=== PATIENT | male | born 1955 | race Hispanic/Latino ===

== ENCOUNTER 2019-03-03 19:13 | Inpatient (IN) | payer OTHER ==
[2019-03-04] MEDS: DESYREL PO SCH ×2 (06:20→21:27)
[2019-03-04] MEDS ORDERED: NEURONTIN PO SCH (08:00)
[2019-03-04 08:19] LABS: Chol/HDL Ratio 4.39 %
[2019-03-04] MEDS: HumaLOG SUB-Q SCH ×4 (08:43→21:25)
[2019-03-04] MEDS ORDERED: NON-FORMULARY (Seroquel 200 MG) PO PRN (12:24)
[2019-03-04] MEDS ORDERED: NON-FORMULARY (Aspirin Ec 81 MG) PO SCH (12:30)
[2019-03-04] MEDS ORDERED: NON-FORMULARY (Metformin 1,000 MG) PO SCH (12:30)
[2019-03-04] MEDS ORDERED: INSULIN GLARGINE SUB-Q SCH (12:30)
[2019-03-04] MEDS ORDERED: APIXABAN 5 MG PO SCH (12:30)
[2019-03-04] MEDS ORDERED: DEPAKOTE 500 MG PO SCH (12:30)
[2019-03-04] MEDS ORDERED: BREO ELLIPTA INHALATION SCH (12:30)
[2019-03-04] MEDS: BETAPACE PO SCH ×2 (12:41→21:33)
[2019-03-04] MEDS ORDERED: SOTALOL 120 MG PO SCH (12:45)
--- NOTE | 2019-03-04 12:53 | History and Physical Report ---
GP History & Physical - History of Present Illness Date of admission: 03/03/19 Date of Examination: 03/04/19 Reason for Admission: Danger to self, Psychopathology interference, Severe anxiety/depression Chief Complaint: Anxious, depressed, hearing voices and suicidal History of Present Illness: The patient is a 63yo retired male with history of Bipolar disorder. He presents with severely depressed mood, anxiety auditory hallucinations and suicidal thoughts. In my interview with the patient, he reports that he has been feeling more depressed in the last couple of weeks. He is unable to enjoy his usual pleasurable activities, has been isolating from family and friends, unable to initiate and maintain sleep and feels tired most of the time. His appetite is good. He reports feeling hopeless and helpless. He admits considering suicide especially when he feels tormented by the voices that tells him negative things and make derogatory comments at him. He reports feeling very anxious, on edge and irritable all the time. No panic attacks. He had his medications adjusted in the outpatient clinic but no improvement in his feelings. He reports being compliant with his meds and denies major side effects. 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 Legal Status: Voluntary Patient Problems: Current Active Problems Anxiety disorder, unspecified (Acute) Bipolar 1 disorder, depressed, severe (Acute) Reaction to Hospitalization: Accepting Substance History - Substance History Drug Use: none Hx Tobacco Use: No Alcohol Use: No Past psychiatric history - Past Medical History Past Medical History: acute [place], atrial fib, CAD, COPD, diabetes - past Psychiatric treatment and history Psych: Anxiety, Bipolar psychiatric treatment history: 6 inpatient admissions 1 suicide attempt by cutting his wrist 3 years ago He self mutilates his skin by scratching with his long finger nails. No self- harm behavior for over a year. He is happy with current out-patient provider - wants his psychiatrist to listen to him more. - Social History Social history: , lives with family (completed high school, retired, no legal problem and no access to guns. ) Review of Systems All systems: negative Psychiatric: anxiety, insomnia, suicidal ideation, hallucinations, depression, hopelessness, anhedonia, anxiety attacks, irritability Results - Results Labs/Vitals: Laboratory Last Values POC Glucose 190 (70-105) H 03/04/19 11:19 9.1 % (4-6) H 03/04/19 07:48 Triglycerides 242 mg/dL (2-149) H 03/04/19 07:48 Cholesterol 145 mg/dL (50-199) 03/04/19 07:48 96 mg/dL (50-130) 03/04/19 07:48 33 mg/dL (40-59) L 03/04/19 07:48 4.39 % 03/04/19 07:48 Valproic Acid 47.2 ug/mL (50-100) L 03/04/19 07:48 Last Vital Signs Temp 97.3 F L 03/04/19 04:15 Pulse 53 L 03/04/19 04:15 Resp 18 03/04/19 04:15 BP 129/78 03/04/19 04:15 Pulse Ox 98 03/04/19 04:15 Physical Examination - Constitutional Vitals: Vital Signs Temp Pulse Resp BP Pulse Ox 97.3 F L 53 L 18 129/78 98 03/04/19 04:15 03/04/19 04:15 03/04/19 04:15 03/04/19 04:15 03/04/19 04:15 Temperature -Last 24 Hours Temperature 97.3 F General appearance: Present: no acute distress, well-nourished - EENT Eyes: Present: PERRL, EOM intact ENT: hearing intact, clear oral mucosa - Neck Neck: Present: supple, normal ROM - Respiratory Respiratory effort: normal Mental Status Exam - Vital signs Last Vital Signs Temp 97.3 F L 03/04/19 04:15 Pulse 53 L 03/04/19 04:15 Resp 18 03/04/19 04:15 BP 129/78 03/04/19 04:15 Pulse Ox 98 03/04/19 04:15 - Exam Orientation: time, place, person Affect: depressed, anxious Mood: congruent with affect Thought Process: Intact Perceptions: hallucinations Speech: normal rate and pattern Concentration: focused Motor activity: lethargic Level of consciousness: alert Memory: Intact Sleep Symptoms: Difficulty Falling Asleep, Wakes During Night Interaction: cooperative Assessment and Plan - Psychiatric problem (1) Bipolar 1 disorder, depressed, severe Current Visit: Yes Status: Acute plan to address problem: Patient will be admitted for inpatient psychiatric evaluation, medication adjustment and close monitoring The patient's behavior, mood, sleep and appetite will be closely monitored. Patient will be enrolled in individual and group therapeutic sessions and encouraged to attend. Patient will be provided with a safe and structured environment. Patient's physical health needs will be addressed by the Hospitalist. Social Assessment will be completed and the Oncology Consultant will work with patient and family to ensure a suitable and safe disposition Medication adjustment will be made as clinically indicated. Alprazolam discontinued and replaced with Clonazepam 0.5mg bid + 0.5mg bid prn anxiety. Will wean Clonazepam off over the next few days Zoloft discontinued and replaced with Cymbalta 60mg qd for depression. Gabapentin increased from 300mg tid to 600mg tid for anxiety and mood. Seroquel increased from 200mg qhs to 300mg qhs. The patient agreed on the treatment plan, understood the risk, benefit, alternative treatment, potential consequence of no treatment, and gave informed consent. (2) Anxiety disorder, unspecified Current Visit: Yes Status: Acute Physician Certification - Certification Statement Physician Certification Statement: This is an acknowledgement statement that LINA DAIGLE is a 63 year old M who requires inpatient psychiatric admission for treatment which could reasonably be expected to improve the patient's condition for Bipolar depression Estimated period of time patient will need to remain in the hospital: 7 days Plan for post-hospital care: Outpatient care
--- NOTE | 2019-03-04 13:24 | Consultation ---
History of Present Illness - Reason for Consult Consult date: 03/04/19 DIABETES Requesting physician: MILTON LEE - History of Present Illness Patient year 63-year-old male with multiple medical conditions including bipolar disorder, diabetes mellitus, CAD, many other conditions who presents and is admitted to the inpatient [facility] facility. The patient is being managed for depression and sucidal ideation. His medical conditions have remained stable and he has no complaints in this area. He reports compliance with all his medications Past History Past Medical History: acute [place], atrial fib, CAD, COPD, diabetes Social history: , lives with family (completed high school, retired, no legal problem and no access to guns. ) Medications and Allergies Allergies Allergy/AdvReac Type Severity Reaction Status Date / Time Penicillins Allergy Unknown Verified 03/03/19 19:30 Home Medications Medication Instructions Recorded Confirmed Last Taken Type ALPRAZolam [Xanax TAB] 1 mg PO BID 03/03/19 03/03/19 Unknown History Apixaban 5 mg PO BID 03/03/19 03/03/19 Unknown History Aspirin EC 81 mg PO DAILY 03/03/19 03/03/19 Unknown History Basaglar Kwikpen U-100 30 units SUB-Q DAILY 03/03/19 03/03/19 Unknown History Breo Ellipta 200-25 Mcg INH 1 puff INHALATION DAILY 03/03/19 03/03/19 Unknown History Buspar 10 mg PO DAILY 03/03/19 03/03/19 Unknown History Crestor 20 mg PO HS 03/03/19 03/03/19 Unknown History Depakote ER 1,000 mg PO HS 03/03/19 03/03/19 Unknown History Depakote ER 500 mg PO DAILY 03/03/19 03/03/19 Unknown History Eluxadoline 75 mg PO BID 03/03/19 03/03/19 Unknown History Gabapentin 300 mg PO TID 03/03/19 03/03/19 Unknown History SEROquel 200 mg PO HS 03/03/19 03/03/19 Unknown History SEROquel 200 mg PO HS PRN 03/03/19 03/03/19 Unknown History Sertraline 100 mg PO DAILY 03/03/19 03/03/19 Unknown History Sotalol 120 mg PO BID 03/03/19 03/03/19 Unknown History metFORMIN 1,000 mg PO BID 03/03/19 03/03/19 Unknown History traZODone 150 mg PO HS 03/03/19 03/03/19 Unknown History Active Meds: Active Medications Apixaban (Eliquis) 5 mg PO Q12HR [facility] Arformoterol Tartrate (Brovana Nebu) 15 mcg IH Q12HRT [facility] Aspirin (Baby Aspirin) 81 mg PO QDAY [facility] Atorvastatin Calcium (Lipitor) 40 mg PO QHS [facility] Budesonide (Pulmicort) 0.5 mg IH Q12HRT [facility] Buspirone HCl (Buspar) 10 mg PO QDAY [facility] Clonazepam (Klonopin) 0.5 mg PO BID BEHZAD Clonazepam (Klonopin) 0.5 mg PO BID PRN PRN Reason: Anxiety Divalproex Sodium (Depakote Dr) 500 mg PO QDAY [facility] Divalproex Sodium (Depakote Dr) 1,000 mg PO QHS [facility] Duloxetine HCl (Cymbalta) 60 mg PO QDAY [facility] Gabapentin (Neurontin) 600 mg PO TID [facility] Insulin Glargine (Lantus) 30 units SUB-Q QHS [facility] Insulin Human Lispro (Humalog) 0 unit SUB-Q [facility]; Protocol Last Admin: 03/04/19 12:17 Dose: 2 unit Documented by: Miscellaneous Medication (Breo Ellipta 200-25 Mcg Inh) 1 puff INHALATION DAILY [facility] Miscellaneous Medication (Eluxadoline) 75 mg PO BID [facility] Miscellaneous Medication (Metformin) 1,000 mg PO BID [facility] Quetiapine Fumarate (Seroquel) 300 mg PO QHS [facility] Sotalol HCl (Betapace) 120 mg PO Q12HR [facility] Last Admin: 03/04/19 12:41 Dose: 120 mg Documented by: Trazodone HCl (Desyrel) 150 mg PO QHS [facility] Last Admin: 03/04/19 06:20 Dose: Not Given Documented by: Review of Systems All systems: negative Psychiatric: suicidal ideation, depression Exam - Physical Exam Narrative exam: VITAL SIGNS: Reviewed. GENERAL: The patient appears normally developed, morbidly obese. Vital signs as documented. HEAD: No signs of head trauma. EYES: Pupils are equal. Extraocular motions intact. EARS: Hearing grossly intact. MOUTH: Oropharynx is normal. NECK: No adenopathy, no JVD. CHEST: Chest with clear breath sounds bilaterally. No wheezes, rales, or rhonchi. CARDIAC: Regular rate and rhythm. S1 and S2, without murmurs, gallops, or rubs. VASCULAR: No Edema. Peripheral pulses normal and equal in all extremities. ABDOMEN: Soft, non tender and non distended. No rebound or guarding, and no masses palpated. Bowel Sounds normal. MUSCULOSKELETAL: Good range of motion of all major joints. Extremities without clubbing, cyanosis or edema. NEUROLOGIC EXAM: Alert and oriented x 3 No focal sensory or strength deficits. Speech normal. Follows commands. PSYCHIATRIC: Mood normal. SKIN: detial exam as documented in skin assessment - Constitutional Vitals: Temp Pulse Resp BP Pulse Ox 97.3 F L 64 18 108/63 98 03/04/19 04:15 03/04/19 12:41 03/04/19 04:15 03/04/19 12:41 03/04/19 04:15 Results - Labs Labs: Abnormal lab results 03/04/19 03/04/19 03/04/19 Range/Units 03:13 06:48 07:48 POC Glucose 127 H 164 H (70-105) Hemoglobin A1c 9.1 H (4-6) % Triglycerides (2-149) mg/dL HDL Cholesterol (40-59) mg/dL Valproic Acid (50-100) ug/mL 03/04/19 03/04/19 03/04/19 Range/Units 07:48 07:48 11:19 POC Glucose 190 H (70-105) Hemoglobin A1c (4-6) % Triglycerides 242 H (2-149) mg/dL HDL Cholesterol 33 L (40-59) mg/dL Valproic Acid 47.2 L (50-100) ug/mL Assessment and Plan DM type 2 with hyperglycemia Congestive heart failure stable, presume systolic CAD s/p Cardiac cath Bipolar disorder with MANIC Episode Homicidal DEPRESSION Hx of Exploratory Laparotomy Skin cancer removed from nose Anemia of chronic disease Asthma CHRONIC bACK PAIN Tobacco use disorder quit 12 years ago DJD Chronic Back pain GERD S/P Ana fundoplication DOM Paroxysmal Afib DOM peripheral Nueropathy Morbid Obesity HTN Hyperlipidemia Gout Hiatial Hernia Osteoarthritis Plan Psych management per Psychiatry Adjust insulin for adequate control, from chart review while at [facility] patients BG remains above 200 Encourage weight loss Continue chronic meds Thank you for allowing us assist in the care of your patient. Please reconsult if needed
[2019-03-04] MEDS ORDERED: NON-FORMULARY (Gabapentin 300 MG) PO SCH (14:00)
[2019-03-04] MEDS: CYMBALTA PO SCH (14:45)
[2019-03-04] MEDS: BABY ASPIRIN PO SCH (14:46)
[2019-03-04] MEDS: GLUCOPHAGE PO SCH (17:26)
[2019-03-04] MEDS: NEURONTIN PO SCH ×2 (17:30→20:00)
[2019-03-04] MEDS: ELUXADOLINE 75 MG PO SCH ×2 (17:36→22:00)
[2019-03-04] MEDS: BROVANA NEBU IH SCH (19:56)
[2019-03-04] MEDS: PULMICORT IH SCH (19:56)
[2019-03-04] MEDS: ELIQUIS PO SCH (21:29)
[2019-03-04] MEDS: LANTUS SUB-Q SCH (21:30)
[2019-03-04] MEDS ORDERED: LANTUS SUB-Q SCH (22:00)
[2019-03-04] MEDS ORDERED: NON-FORMULARY (Seroquel 200 MG) PO SCH (22:00)
[2019-03-04] MEDS ORDERED: NON-FORMULARY (Trazodone 150 MG) PO SCH (22:00)
[2019-03-04] MEDS ORDERED: CRESTOR 20 MG PO SCH (22:00)
[2019-03-04] MEDS ORDERED: DEPAKOTE 1000 MG PO SCH (22:00)
[2019-03-05] MEDS: PULMICORT IH SCH ×2 (09:24→21:02)
[2019-03-05] MEDS: BROVANA NEBU IH SCH ×2 (09:24→21:01)
--- NOTE | 2019-03-05 09:25 | Progress Note ---
Subjective Date of service: 03/05/19 Principal diagnosis: Bipolar 1 disorder depressed severe Subjective Comment: Patient reports feeling better this morning because he was able to sleep through the night. Appetite is good. Multiple medication changes were made yesterday. Patient reports that he is tolerating the changes. No major side effects. He continues to be suicidal but denies HI/AVH/Paranoia. Objective - Criteria for Continued Treatment Criteria for Continued Treatment: Improving Level of Functioning, Stablizing Level of Functioning, Improving Emotional/Socia, Decreasing Frequency of Hospitalization - Mental Status Mental Status: Alert - Objective Observation Participation Level: Moderate Assessment and Plan - Patient Problems (1) Bipolar 1 disorder, depressed, severe Current Visit: Yes Status: Acute Plan to address problem: Continue inpatient treatment for medication adjustment and close monitoring The patient's behavior, mood, sleep and appetite will be closely monitored. Patient will be enrolled in individual and group therapeutic sessions and encouraged to attend. Patient will be provided with a safe and structured environment. Patient's physical health needs will be addressed by the Hospitalist. Social Assessment will be completed and the Survey Analyst will work with patient and family to ensure a suitable and safe disposition Medication adjustment will be made as clinically indicated. Changes made yesterday: Alprazolam discontinued and replaced with Clonazepam 0.5mg bid + 0.5mg bid prn anxiety. Will wean Clonazepam off over the next few days Zoloft discontinued and replaced with Cymbalta 60mg qd for depression. Gabapentin increased from 300mg tid to 600mg tid for anxiety and mood. Seroquel increased from 200mg qhs to 300mg qhs. The patient agreed on the treatment plan, understood the risk, benefit, alternative treatment, potential consequence of no treatment, and gave informed consent. (2) Anxiety disorder, unspecified Current Visit: Yes Status: Acute Plan to address problem: As above
[2019-03-05] MEDS ORDERED: NON-FORMULARY (Buspar 10 MG) PO SCH (10:00)
[2019-03-05] MEDS: BETAPACE PO SCH ×2 (11:45→21:42)
[2019-03-05] MEDS: CYMBALTA PO SCH (11:49)
[2019-03-05] MEDS: BABY ASPIRIN PO SCH (11:50)
[2019-03-05] MEDS: ELIQUIS PO SCH ×2 (11:52→21:44)
[2019-03-05] MEDS: ELUXADOLINE 75 MG PO SCH ×2 (11:55→21:44)
[2019-03-05] MEDS: NEURONTIN PO SCH ×3 (15:15→20:20)
[2019-03-05] MEDS: HumaLOG SUB-Q SCH ×3 (17:07→21:44)
[2019-03-05] MEDS: GLUCOPHAGE PO SCH ×2 (17:08→18:00)
[2019-03-05] MEDS: BUSPAR PO SCH (18:00)
[2019-03-05] MEDS: DESYREL PO SCH (21:43)
[2019-03-05] MEDS: LANTUS SUB-Q SCH (21:47)
--- NOTE | 2019-03-06 07:28 | Progress Note ---
Subjective Date of service: 03/06/19 Principal diagnosis: Bipolar 1 disorder depressed severe Subjective Comment: Patient reports not sleeping well last night. States that his mind is racing. Entertained suicide thoughts as he was not able to sleep and his mind kept racing with several unrelated and convoluted thoughts. Appetite is good. Patient is compliant with medications and denies side effects. He denies HI/AVH/Paranoia. Objective - Criteria for Continued Treatment Criteria for Continued Treatment: Improving Level of Functioning, Stablizing Level of Functioning, Improving Emotional/Socia - Mental Status Mental Status: Alert - Objective Observation Participation Level: Moderate Assessment and Plan - Patient Problems (1) Bipolar 1 disorder, depressed, severe Current Visit: Yes Status: Acute Plan to address problem: Continue inpatient treatment for medication adjustment and close monitoring The patient's behavior, mood, sleep and appetite will be closely monitored. Patient will be enrolled in individual and group therapeutic sessions and encouraged to attend. Patient will be provided with a safe and structured environment. Patient's physical health needs will be addressed by the Hospitalist. Social Assessment will be completed and the Water Main Pipe Layer will work with patient and family to ensure a suitable and safe disposition Medication adjustment will be made as clinically indicated. Increase Clonazepam to 1mg bid + 0.5mg bid prn anxiety. Will wean Clonazepam off over the next few days Continue Cymbalta 60mg qd for depression. Continue Gabapentin 600mg tid for anxiety and mood. Continue Seroquel increased 300mg qhs. Continue Trazodone 150mg qhs Continue Divalproex DR 500mg qam and 1500mg qhs Will check Valproic acid level in am tomorrow The patient agreed on the treatment plan, understood the risk, benefit, alternative treatment, potential consequence of no treatment, and gave informed consent. (2) Anxiety disorder, unspecified Current Visit: Yes Status: Acute Plan to address problem: As above
[2019-03-06] MEDS: HumaLOG SUB-Q SCH ×4 (07:39→21:15)
[2019-03-06] MEDS: GLUCOPHAGE PO SCH ×2 (08:58→16:54)
[2019-03-06] MEDS: NEURONTIN PO SCH ×3 (09:02→19:49)
[2019-03-06] MEDS: CYMBALTA PO SCH (09:22)
[2019-03-06] MEDS: BETAPACE PO SCH ×2 (09:23→21:16)
[2019-03-06] MEDS: BUSPAR PO SCH (09:25)
[2019-03-06] MEDS: ELIQUIS PO SCH ×2 (09:25→21:15)
[2019-03-06] MEDS: BABY ASPIRIN PO SCH (09:25)
[2019-03-06] MEDS: ELUXADOLINE 75 MG PO SCH ×2 (09:26→21:18)
[2019-03-06] MEDS: BROVANA NEBU IH SCH ×2 (09:53→21:24)
[2019-03-06] MEDS: PULMICORT IH SCH ×2 (09:53→21:24)
[2019-03-06] MEDS: DESYREL PO SCH (21:12)
[2019-03-06] MEDS: LANTUS SUB-Q SCH (21:16)
--- NOTE | 2019-03-07 07:25 | Progress Note ---
Subjective Date of service: 03/07/19 Principal diagnosis: Bipolar 1 disorder depressed severe Subjective Comment: Patient reports that he slept well last night. His mood is improving. Appetite is good. Patient is compliant with medications and denies side effects. He denies SI/HI/AVH/Paranoia. Objective - Criteria for Continued Treatment Criteria for Continued Treatment: Stablizing Level of Functioning - Mental Status Mental Status: Alert - Objective Observation Participation Level: Full Assessment and Plan - Patient Problems (1) Bipolar 1 disorder, depressed, severe Current Visit: Yes Status: Acute Plan to address problem: Continue inpatient treatment for medication adjustment and close monitoring The patient's behavior, mood, sleep and appetite will be closely monitored. Patient will be enrolled in individual and group therapeutic sessions and encouraged to attend. Patient will be provided with a safe and structured environment. Patient's physical health needs will be addressed by the Hospitalist. Social Assessment will be completed and the Research Hydrologist will work with patient and family to ensure a suitable and safe disposition Medication adjustment will be made as clinically indicated. Continue Clonazepam to 1mg bid + 0.5mg bid prn anxiety (03/06) Continue Cymbalta 60mg qd for depression. Continue Gabapentin 600mg tid for anxiety and mood. Continue Seroquel increased 300mg qhs. Continue Trazodone 150mg qhs Continue Divalproex DR 500mg qam and 1500mg qhs Will check Valproic acid level this morning The patient agreed on the treatment plan, understood the risk, benefit, alternative treatment, potential consequence of no treatment, and gave informed consent. (2) Anxiety disorder, unspecified Current Visit: Yes Status: Acute
[2019-03-07] MEDS: BROVANA NEBU IH SCH ×2 (08:27→21:18)
[2019-03-07] MEDS: PULMICORT IH SCH ×2 (08:27→21:18)
[2019-03-07] MEDS: HumaLOG SUB-Q SCH ×4 (08:48→21:22)
[2019-03-07] MEDS: NEURONTIN PO SCH ×3 (09:19→20:32)
[2019-03-07] MEDS: CYMBALTA PO SCH (09:19)
[2019-03-07] MEDS: ELIQUIS PO SCH ×2 (09:20→21:22)
[2019-03-07] MEDS: BABY ASPIRIN PO SCH (09:20)
[2019-03-07] MEDS: ELUXADOLINE 75 MG PO SCH ×2 (09:21→21:22)
[2019-03-07] MEDS: GLUCOPHAGE PO SCH ×2 (09:21→17:07)
[2019-03-07] MEDS: BUSPAR PO SCH (09:21)
[2019-03-07] MEDS: BETAPACE PO SCH ×2 (09:22→21:21)
[2019-03-07] MEDS: DESYREL PO SCH (21:19)
[2019-03-07] MEDS: LANTUS SUB-Q SCH (21:23)
--- NOTE | 2019-03-08 08:53 | Discharge Summary ---
Providers - Providers Date of Admission: 03/04/19 02:38 Date of discharge: 03/09/19 Attending physician: MILTON LEE MD 03/03/19 20:25 Consult to Physician [CONS] Routine Comment: Consulting Provider: JACOB ALVARADO Physician Instructions: Reason For Exam: New admission [facility] Reason for admission: Depressed mood, anxiety, auditory hallucinations and suicidal thoughts Allergies/Adverse Reactions: Allergies Penicillins Allergy (Verified 03/03/19 19:30) Unknown Vital Signs: Last Vital Signs Temp 97.6 F 03/07/19 08:10 Pulse 20 L 03/08/19 00:11 Resp 66 H 03/08/19 00:11 BP 107/56 03/07/19 21:21 Pulse Ox 96 03/08/19 00:11 Last Lab: Laboratory Last Values POC Glucose 102 (70-105) 03/08/19 08:07 9.1 % (4-6) H 03/04/19 07:48 Triglycerides 242 mg/dL (2-149) H 03/04/19 07:48 Cholesterol 145 mg/dL (50-199) 03/04/19 07:48 96 mg/dL (50-130) 03/04/19 07:48 33 mg/dL (40-59) L 03/04/19 07:48 4.39 % 03/04/19 07:48 Valproic Acid 90.0 ug/mL (50-100) 03/07/19 09:45 - Discharge Diagnoses (1) Bipolar 1 disorder, depressed, severe Status: Acute (2) Anxiety disorder, unspecified Status: Acute Core Measure Documentation - Palliative Care Palliative Care/ Comfort Measures: Not Applicable Exam - Constitutional Vitals: Temp Pulse Resp BP Pulse Ox 97.6 F 20 L 66 H 107/56 96 03/07/19 08:10 03/08/19 00:11 03/08/19 00:11 03/07/19 21:21 03/08/19 00:11 Plan Follow up with: SADIA JUAREZCHATTANOOGA MD JOHNY [Primary Care Provider] - 7 Days Prescriptions: QUEtiapine [SEROquel] 300 mg PO QHS #45 tablet DULoxetine [Cymbalta] 60 mg PO QDAY #60 capsule clonazePAM [KlonoPIN] 1 mg PO BID #60 tablet Gabapentin [Neurontin] 600 mg PO TID #60 capsule
[2019-03-08] MEDS: BROVANA NEBU IH SCH ×2 (09:05→20:47)
[2019-03-08] MEDS: PULMICORT IH SCH ×2 (09:07→20:46)
[2019-03-08] MEDS: CYMBALTA PO SCH (10:19)
[2019-03-08] MEDS: ELIQUIS PO SCH ×2 (10:20→21:59)
[2019-03-08] MEDS: BABY ASPIRIN PO SCH (10:20)
[2019-03-08] MEDS: NEURONTIN PO SCH ×3 (10:20→20:12)
[2019-03-08] MEDS: GLUCOPHAGE PO SCH ×2 (10:20→17:20)
[2019-03-08] MEDS: ELUXADOLINE 75 MG PO SCH ×2 (10:23→21:59)
[2019-03-08] MEDS: BETAPACE PO SCH ×2 (10:26→21:57)
[2019-03-08] MEDS: HumaLOG SUB-Q SCH ×4 (10:29→22:00)
[2019-03-08] MEDS: BUSPAR PO SCH (10:31)
[2019-03-08] MEDS: DESYREL PO SCH (21:59)
[2019-03-08] MEDS: LANTUS SUB-Q SCH (22:01)
--- NOTE | 2019-03-09 06:25 | Progress Note ---
Subjective Date of service: 03/08/19 Principal diagnosis: Bipolar 1 disorder depressed severe Subjective Comment: Patient reports that he slept well last night. His mood continues to improve. Appetite is good. He denies SI/HI/AVH/Paranoia. Patient is compliant with medications. He reports feeling sedated and dizzy this morning. Serum Valproic Acid level is high normal (90.0) from this morning's lab results. Patient will be monitored closely for over the next 24 hours to ensure that he is able to tolerate his new medications. Will discharge in am if he the dizziness resolves. Objective - Criteria for Continued Treatment Criteria for Continued Treatment: Stablizing Level of Functioning - Mental Status Mental Status: Alert - Objective Observation Participation Level: Full Assessment and Plan - Patient Problems (1) Bipolar 1 disorder, depressed, severe Current Visit: Yes Status: Acute Plan to address problem: Continue inpatient treatment for medication adjustment and close monitoring The patient's behavior, mood, sleep and appetite will be closely monitored. Patient will be enrolled in individual and group therapeutic sessions and encouraged to attend. Patient will be provided with a safe and structured environment. Patient's physical health needs will be addressed by the Hospitalist. Social Assessment will be completed and the Judicial Reporter will work with patient and family to ensure a suitable and safe disposition Medication adjustment will be made as clinically indicated. Continue Clonazepam 1mg bid + 0.5mg bid prn anxiety (03/06) Continue Cymbalta 60mg qd for depression. Continue Gabapentin 600mg tid for anxiety and mood. Continue Seroquel increased 300mg qhs. Continue Trazodone 150mg qhs Continue Divalproex DR 500mg qam and 1500mg qhs The patient agreed on the treatment plan, understood the risk, benefit, alternative treatment, potential consequence of no treatment, and gave informed consent. (2) Anxiety disorder, unspecified Current Visit: Yes Status: Acute Plan to address problem: As above
[2019-03-09] MEDS: HumaLOG SUB-Q SCH (08:04)
[2019-03-09] MEDS: GLUCOPHAGE PO SCH (08:29)
[2019-03-09] MEDS: NEURONTIN PO SCH (08:29)
[2019-03-09] MEDS: PULMICORT IH SCH (08:42)
[2019-03-09] MEDS: BROVANA NEBU IH SCH (08:42)
[2019-03-09] MEDS: ELIQUIS PO SCH (09:46)
[2019-03-09] MEDS: BABY ASPIRIN PO SCH (09:46)
[2019-03-09] MEDS: BUSPAR PO SCH (09:47)
[2019-03-09] MEDS: CYMBALTA PO SCH (09:47)
[2019-03-09 09:50] VITALS: BP 122/51
[2019-03-09] MEDS: BETAPACE PO SCH (09:50)
[2019-03-09] MEDS: ELUXADOLINE 75 MG PO SCH (09:56)
== END 2019-03-09 10:35 | disposition home or self-care (01) | DRG 885 ==
LOC: 3A 19:13 → UNDOADMIN 19:13 → 5A 03-04 02:38
PROVIDERS: ADMIT Psychiatry & Neurology Psychiatry; ATTEND Psychiatry & Neurology Psychiatry
PROC: 5A09357 Assistance with Respiratory Ventilation, Less than 24 Consecutive Hours, Continuous Positive Airway Pressure (ICD-10-PCS; principal; 2019-03-04)
PROC: 5A09357 Assistance with Respiratory Ventilation, Less than 24 Consecutive Hours, Continuous Positive Airway Pressure (ICD-10-PCS; 2019-03-05)
PROC: 5A09357 Assistance with Respiratory Ventilation, Less than 24 Consecutive Hours, Continuous Positive Airway Pressure (ICD-10-PCS; 2019-03-07)
PROC: 5A09357 Assistance with Respiratory Ventilation, Less than 24 Consecutive Hours, Continuous Positive Airway Pressure (ICD-10-PCS; 2019-03-08)
DX: F31.4 Bipolar disorder, current episode depressed, severe, without psychotic features (principal); Z68.45 Body mass index [BMI] 70 or greater, adult; F41.9 Anxiety disorder, unspecified; I48.91 Unspecified atrial fibrillation; I25.10 Atherosclerotic heart disease of native coronary artery without angina pectoris; E11.65 Type 2 diabetes mellitus with hyperglycemia; D63.8 Anemia in other chronic diseases classified elsewhere; K21.9 Gastro-esophageal reflux disease without esophagitis; G47.33 Obstructive sleep apnea (adult) (pediatric); I48.0 Paroxysmal atrial fibrillation; E11.42 Type 2 diabetes mellitus with diabetic polyneuropathy; E66.01 Morbid (severe) obesity due to excess calories; K44.9 Diaphragmatic hernia without obstruction or gangrene; M10.9 Gout, unspecified; M19.90 Unspecified osteoarthritis, unspecified site; G89.29 Other chronic pain; J44.9 Chronic obstructive pulmonary disease, unspecified; M54.9 Dorsalgia, unspecified; I25.2 Old myocardial infarction; Z79.84 Long term (current) use of oral hypoglycemic drugs; Z88.0 Allergy status to penicillin; Z79.82 Long term (current) use of aspirin; Z87.891 Personal history of nicotine dependence
CPT/HCPCS: 36415; 80061; 80164; 82962; 83036; 94640; 94660; G0378; A9270-GY; J1815